=== PATIENT | female | born 1990 | race Caucasian/White ===

== ENCOUNTER 2016-06-02 15:36 | Outpatient (CLI) | payer OTHER ==
[2016-06-02 16:05] VITALS: BMI 25.4
== END 2016-06-02 17:02 | disposition home or self-care (01) ==
LOC: FBCOUT 15:36 → FBC 15:37 → FBCOUT 17:02
PROVIDERS: ATTEND Obstetrics & Gynecology
DX: O99.419 Diseases of the circulatory system complicating pregnancy, unspecified trimester (principal); R00.0 Tachycardia, unspecified; Z3A.00 Weeks of gestation of pregnancy not specified
CPT/HCPCS: 59050; 93005; G0463